=== PATIENT | male | born 1980 | race Caucasian/White ===

== ENCOUNTER 2018-06-16 09:03 | Emergency (ER) | payer SELFPAY ==
[2018-06-16 09:55] LABS: Absolute Monocytes 0.9 K/uL (0.1-1.3); Absolute Neutrophil 5.9 K/uL (1.8-8.0); Basophils % 1.1 % (0-1.3); Eosinophils % 2.3 % (0-4.4); Hematocrit 48.1 % (39.6-49.0); MPV 8.6 fL (7.6-11.3); Monocytes % 9.9 % (3.3-12.3); RBC Red Blood Cell Count 5.45 M/uL (4.33-5.43)
[2018-06-16 09:56] LABS: Protime INR 1.04
[2018-06-16 10:15] LABS: ALT/SGPT 64 U/L (12-78); AST/SGOT 31 U/L (15-37); Albumin 3.9 g/dL (3.4-5.0); Alkaline Phosphatase 65 U/L (45-117); BUN Blood Urea Nitrogen 25 mg/dL (7-18); Bicarbonate 27 mmol/L (21-32); Bilirubin Direct < 0.1 mg/dL (0-0.2); Bilirubin Total 0.3 mg/dL (0.2-1.0); Glucose Level 124 mg/dL (74-106); Magnesium 2.2 mg/dL (1.8-2.4); NT PRO-BNP 9 pg/mL (<125); Potassium 4.4 mmol/L (3.5-5.1); Protein, Total 7.7 g/dL (6.4-8.2); Sodium Level 141 mmol/L (136-145); Troponin (Emerg Dept Use Only) < 0.02 ng/mL (0.0-0.045)
--- NOTE | 2018-06-16 10:31 | RAD REPORT ---
EXAM DESCRIPTION: RAD - Chest Single View - 06/16/2018 9:59 am CLINICAL HISTORY: CHEST PAIN Chest pain. COMPARISON: No comparisons FINDINGS: Portable technique limits examination quality. The lungs are grossly clear. The heart is normal in size. No displaced fractures. IMPRESSION: No acute intrathoracic process suspected.
--- NOTE | 2018-06-16 10:33 | EDPHYS ---
Physician Documentation [facility] Name: Paulo Rios II Age: 37 yrs Sex: Male : 1980 Arrival Date: 06/16/2018 Time: 09:05 Bed 15 Private MD: ED Physician Jose Martin Pendleton HPI: 06/16 10:05 This 37 yrs old Male presents to ER via Ambulatory with complaints of Chest pm1 Pain. 10:05 The patient or guardian reports chest pain that is located primarily in the mid-sternal pm1 area. The pain does not radiate. Associated signs and symptoms: Pertinent positives: bilateral arm tingling, Pertinent negatives: abdominal pain, cough, diaphoresis, dizziness, headache, nausea, shortness of breath, vomiting. The chest pain is described as a pressure. Duration: The patient or guardian reports multiple episodes, for the past 3-4 months. Modifying factors: The symptoms are alleviated by Burping. the symptoms are aggravated by Food. Severity of pain: in the emergency department the pain is actually worse is a 0 / 10. The patient has not recently seen a physician. Historical: - Allergies: 09:20 No Known Allergies; ss - Home Meds: 09:20 None [Active]; ss - PMHx: 09:20 Migraines; ss - PSHx: 09:20 None; ss - Immunization history:: Adult Immunizations up to date. - Social history:: Smoking status: Patient/guardian denies using tobacco, the patient reports quitting approximately .25 years ago. - Ebola Screening: : Patient denies exposure to infectious person Patient denies travel to an Ebola-affected area in the 21 days before illness onset. ROS: 10:05 Constitutional: Negative for fever, chills, and weight loss, Eyes: Negative for injury, pm1 pain, redness, and discharge, ENT: Negative for injury, pain, and discharge, Neck: Negative for injury, pain, and swelling. 10:05 Respiratory: Negative for shortness of breath, cough, wheezing, and pleuritic chest pain, Abdomen/GI: Negative for abdominal pain, nausea, vomiting, diarrhea, and constipation, Back: Negative for injury and pain, : Negative for injury, bleeding, discharge, and swelling, MS/Extremity: Negative for injury and deformity, Skin: Negative for injury, rash, and discoloration. 10:05 Cardiovascular: Positive for chest pain, Negative for edema, orthopnea, palpitations. 10:05 Neuro: Positive for tingling, of the right arm and left arm, Negative for dizziness, headache, weakness. Exam: 10:05 Constitutional: This is a well developed, well nourished patient who is awake, alert, pm1 and in no acute distress. Head/Face: Normocephalic, atraumatic. Eyes: Pupils equal round and reactive to light, extra-ocular motions intact. Lids and lashes normal. Conjunctiva and sclera are non-icteric and not injected. Cornea within normal limits. Periorbital areas with no swelling, redness, or edema. ENT: Nares patent. No nasal discharge, no septal abnormalities noted. Tympanic membranes are normal and external auditory canals are clear. Oropharynx with no redness, swelling, or masses, exudates, or evidence of obstruction, uvula midline. Mucous membranes moist. Neck: Trachea midline, no thyromegaly or masses palpated, and no cervical lymphadenopathy. Supple, full range of motion without nuchal rigidity, or vertebral point tenderness. No Meningismus. Chest/axilla: Normal chest wall appearance and motion. Nontender with no deformity. No lesions are appreciated. Cardiovascular: Regular rate and rhythm with a normal S1 and S2. No gallops, murmurs, or rubs. Normal PMI, no JVD. No pulse deficits. Respiratory: Lungs have equal breath sounds bilaterally, clear to auscultation and percussion. No rales, rhonchi or wheezes noted. No increased work of breathing, no retractions or nasal flaring. Abdomen/GI: Soft, non-tender, with normal bowel sounds. No distension or tympany. No guarding or rebound. No evidence of tenderness throughout. Back: No spinal tenderness. No costovertebral tenderness. Full range of motion. Skin: Warm, dry with normal turgor. Normal color with no rashes, no lesions, and no evidence of cellulitis. MS/ Extremity: Pulses equal, no cyanosis. Neurovascular intact. Full, normal range of motion. 10:05 Neuro: Orientation: is normal, Motor: is normal, moves all fours. 10:29 ECG NSR, 88 BPM, Normal ECG pm1 Vital Signs: 09:20 BP 155 / 104; Pulse 99; Resp 18; Temp 98.4(TE); Pulse Ox 98% on R/A; Weight 104.33 kg; ss Height 5 ft. 8 in. (172.72 cm); Pain 0/10; 10:20 BP 140 / 89; Pulse 79; Resp 19; Pulse Ox 98% on R/A; Pain 0/10; rb1 09:20 Body Mass Index 34.97 (104.33 kg, 172.72 cm) ss MDM: 09:31 Patient medically screened. pm1 10:31 Data reviewed: vital signs. Data interpreted: Pulse oximetry: on room air is 98 %. pm1 Interpretation: normal. Counseling: I had a detailed discussion with the patient and/or guardian regarding: the historical points, exam findings, and any diagnostic results supporting the discharge/admit diagnosis, lab results, radiology results, the need for outpatient follow up, to return to the emergency department if symptoms worsen or persist or if there are any questions or concerns that arise at home. 06/16 09:32 Order name: Basic Metabolic Panel; Complete Time: 10: pm06/16 09:32 Order name: CBC with Diff; Complete Time: 10:28 pm06/16 09:32 Order name: LFT's; Complete Time: 10: pm06/16 09:32 Order name: Magnesium; Complete Time: 10: pm06/16 09:32 Order name: NT PRO-BNP; Complete Time: 10: pm06/16 09:32 Order name: PT-INR; Complete Time: 10:28 pm06/16 09:32 Order name: Troponin (emerg Dept Use Only); Complete Time: 10:28 pm06/16 09:32 Order name: XRAY Chest (1 view); Complete Time: 10:33 pm06/16 09:32 Order name: EKG; Complete Time: 09:33 pm06/16 09:32 Order name: Cardiac monitoring; Complete Time: 10:10 pm06/16 09:32 Order name: EKG - Nurse/Tech; Complete Time: 10:10 pm06/16 09:32 Order name: IV Saline Lock; Complete Time: 10:10 pm06/16 09:32 Order name: Labs collected and sent; Complete Time: 10:11 pm06/16 09:32 Order name: O2 Per Protocol; Complete Time: 10:11 pm1 06/16 09:32 Order name: O2 Sat Monitoring; Complete Time: 10:11 pm1 Administered Medications: 10:53 CANCELLED (Patient Refused): GI Cocktail without - (Maalox Suspension 30 ml, rb1 Lidocaine Liquid 2 % 15 ml) PO once Disposition: 06/16/18 10:32 Discharged to Home. Impression: Chest pain, unspecified. - Condition is Stable. - Discharge Instructions: Nonspecific Chest Pain. - Prescriptions for Pepcid 20 mg Oral Tablet - take 1 tablet by ORAL route every 12 hours for 10 days; 20 tablet. - Medication Reconciliation Form, Thank You Letter, Antibiotic Education, Prescription Opioid Use form. - Follow up: Emergency Department; When: As needed; Reason: Worsening of condition. Follow up: Private Physician; When: 2 - 3 days; Reason: Recheck today's complaints, Continuance of care, Re-evaluation by your physician. - Problem is new. - Symptoms have improved. Addendum: 06/21/2018 10:35 Co-signature as Attending Physician, Jose Martin Pendleton MD I agree with the assessment and k dr plan of care. Signatures: Dispatcher [employer] EDSD Jose Martin Pendleton MD MD kdr Stephanie Ontiveros RN RN ss Maliha Ward RN RN rb1 Joshua Magana, JOSH AIRCRAFT ENGINE DISMANTLER pm1 Corrections: (The following items were deleted from the chart) 06/16 10:53 10:33 GI Cocktail without - (Maalox 30 ml, Lidocaine 15 ml) PO once ordered. rb1 pm1 10:53 10:32 06/16/2018 10:32 Discharged to Home. Impression: Chest pain, unspecified. rb1 Condition is Stable. Forms are Medication Reconciliation Form, Thank You Letter, Antibiotic Education, Prescription Opioid Use. Follow up: Emergency Department; When: As needed; Reason: Worsening of condition. Follow up: Private Physician; When: 2 - 3 days; Reason: Recheck today's complaints, Continuance of care, Re-evaluation by your physician. Problem is new. Symptoms have improved. pm1
--- NOTE | 2018-06-16 10:33 | ER ---
Nurse's Notes [facility] Name: Paulo Rios II Age: 37 yrs Sex: Male : 1980 Arrival Date: 06/16/2018 Time: 09:05 Bed 15 Private MD: Diagnosis: Chest pain, unspecified Presentation: 06/16 09:17 Presenting complaint: Patient states: Chest pressure x 3-4 months, bilateral finger ss tingling x 1 month. Pt is here today because he feels as if his chest pressure was worse this morning. Transition of care: patient was not received from another setting of care. Onset of symptoms is unknown. Risk Assessment: Do you want to hurt yourself or someone else? Patient reports no desire to harm self or others. Initial Sepsis Screen: Does the patient meet any 2 criteria? HR > 90 bpm. Does the patient have a suspected source of infection? No. Patient's initial sepsis screen is negative. Care prior to arrival: None. 09:17 Method Of Arrival: Ambulatory ss 09:17 Acuity: ELISABETH 3 ss Historical: - Allergies: 09:20 No Known Allergies; ss - Home Meds: 09:20 None [Active]; ss - PMHx: 09:20 Migraines; ss - PSHx: 09:20 None; ss - Immunization history:: Adult Immunizations up to date. - Social history:: Smoking status: Patient/guardian denies using tobacco, the patient reports quitting approximately .25 years ago. - Ebola Screening: : Patient denies exposure to infectious person Patient denies travel to an Ebola-affected area in the 21 days before illness onset. Screenin:11 Abuse screen: Denies threats or abuse. Nutritional screening: No deficits noted. rb1 Tuberculosis screening: No symptoms or risk factors identified. Fall Risk None identified. Assessment: 09:11 General: Appears in no apparent distress. comfortable, Behavior is calm, cooperative. rb1 Pain: Complains of pain in anterior aspect of left upper chest and mid-sternal area Pain does not radiate. Pain currently is 5 out of 10 on a pain scale. at worst was 10 out of 10 on a pain scale. Pain began x couple of months ago Alleviated by Drinking milk Aggravated by Lifting things. Neuro: Level of Consciousness is awake, alert, obeys commands, Oriented to person, place, time, situation. Neuro: Reports dizziness, weakness Tingling in both hands. Cardiovascular: Capillary refill < 3 seconds is brisk in bilateral fingers Rhythm is regular. Cardiovascular: Reports lightheadedness, palpitations. Respiratory: Airway is patent Respiratory effort is even, unlabored, Respiratory pattern is regular, symmetrical. Respiratory: Reports shortness of breath since sometimes. GI: No signs and/or symptoms were reported involving the gastrointestinal system. : No signs and/or symptoms were reported regarding the genitourinary system. Derm: Skin is pink, warm \T\ dry. 10:11 Reassessment: Patient appears in no apparent distress at this time. No changes from rb1 previously documented assessment. Vital Signs: 09:20 BP 155 / 104; Pulse 99; Resp 18; Temp 98.4(TE); Pulse Ox 98% on R/A; Weight 104.33 kg; ss Height 5 ft. 8 in. (172.72 cm); Pain 0/10; 10:20 BP 140 / 89; Pulse 79; Resp 19; Pulse Ox 98% on R/A; Pain 0/10; rb1 09:20 Body Mass Index 34.97 (104.33 kg, 172.72 cm) ED Course: 09:05 Patient arrived in ED. as 09:11 Patient maintains SpO2 saturation greater than 95% on room air. rb1 09:11 Patient has correct armband on for positive identification. Placed in gown. Bed in low rb1 position. Call light in reach. Side rails up X 1. vehicle monitor technician on. Pulse ox on. NIBP on. 09:14 Joshua Magana NP is PHCP. pm1 09:14 Jose Martin Pendleton MD is Attending Physician. pm1 09:18 Triage completed. ss 09:18 EKG done, by it technical support specialist. reviewed by Joshua Magana NP. at1 09:20 Arm band placed on right wrist. ss 09:30 Maliha Ward, FLACO is Primary Nurse. rb1 09:44 Inserted saline lock: 22 gauge in right antecubital area, using aseptic technique. rb1 Blood collected. 09:58 X-ray completed. Portable x-ray completed in exam room. Patient tolerated procedure sw well. 09:59 XRAY Chest (1 view) In Process Unspecified. EDMS 10:53 No provider procedures requiring assistance completed. IV discontinued, intact, rb1 bleeding controlled, No redness/swelling at site. Pressure dressing applied. Administered Medications: :53 CANCELLED (Patient Refused): GI Cocktail without - (Maalox Suspension 30 ml, rb1 Lidocaine Liquid 2 % 15 ml) PO once Outcome: 10:32 Discharge ordered by . pm1 10:53 Patient left the ED. rb1 10:53 Discharged to home ambulatory. rb1 10:53 Condition: stable 10:53 Discharge instructions given to patient, Instructed on discharge instructions, follow up and referral plans. medication usage, Demonstrated understanding of instructions, follow-up care, medications, Prescriptions given X 1. Signatures: Dispatcher [employer] EDMS Caroline Hurd Shelby, FLACO RN ss Hailey Acosta, librarian assistant EKG Tat1 Katarzyna Clements Rebecca, RN RN rb1 Joshua Magana NP ALGORITHM DESIGN ENGINEER pm1
--- NOTE | 2018-06-17 06:46 | EKG ---
Test Date: 2018-06-16 Test Time: 09:11:42 Tectonophysicist: SMILEY MEASUREMENT RESULTS: Intervals: Rate: 88 SC: 142 QRSD: 96 QT: 336 QTc: 406 [place]: P: 64 SC: 142 QRS: 65 T: 51 INTERPRETIVE STATEMENTS: Normal sinus rhythm Normal ECG No previous ECG available for comparison Electronically Signed On 06-17-18 06:42:55 CDT by Baltazar Garvin
== END 2018-06-16 10:53 | disposition home or self-care (01) ==
LOC: ER 09:03
DX: R07.9 Chest pain, unspecified (principal)
CPT/HCPCS: 36415; 71045; 80048; 80076; 83735; 83880; 84484; 85025; 85610; 93005; 99285